=== PATIENT | female | born 1965 | race Hispanic/Latino ===

== ENCOUNTER 2024-12-13 00:31 | Emergency (ER) | payer OTHER ==
[~2024-12-13] VITALS: Ht 162.6 cm; Wt 71.2 kg
[2024-12-13] MEDS ORDERED: FAMO-136 PO (01:08)
[2024-12-13] MEDS ORDERED: PRED20TA3 PO (01:08)
[2024-12-13] MEDS ORDERED: DIPH25CA53 PO (01:08)
--- NOTE | 2024-12-13 01:08 | ERN ---
ED Note History of Present Illness Stated Complaint: C/O RASH,HIVES,ITCHING X 2 DAYS Chief Complaint: Allergic Reaction Time Seen by MD: 00:42 Dictation: 59-YEAR-OLD FEMALE PRESENTS TO ER COMPLAINTS OF AN ALLERGIC REACTION AFTER USING A DIFFERENT SOAP FOR THE 1ST TIME. HAS BEEN HAVING INTERMITTENT ITCHING FOR 2 DAYS. MILD HIVES THROUGHOUT HER BODY. DENIES SHORTNESS OF BREATH OR CHEST PAIN Allergies: Coded Allergies: No Known Allergies (Unverified Allergy, Unknown, 12/13/24) Home Meds Active Scripts Diphenhydramine HCl (Diphenhydramine HCl) 25 Mg Capsule, 25 MG PO Q6HPRN PRN for ITCHING, #10 CAP Prov:JESU MEZAARITA [facility] 12/13/24 Famotidine (Pepcid) 20 Mg Tablet, 1 TAB PO DAILY for 5 Days, #5 TAB 0 Refills Prov:JESU MEZAARITA [facility] 12/13/24 Prednisone (Prednisone) 20 Mg Tablet, 2 TAB PO DAILY for 5 Days, #10 TAB 0 Refills TAKE 1 TAB BY MOUTH THREE TIMES PER DAY X3 DAYS, THEN TAKE 1 TAB BY MOUTH TWICE A DAY X2 DAYS, THEN TAKE 1 TAB BY MOUTH ONCE A DAY X1 DAY. Prov:MARINO MEZATA [facility] 12/13/24 Past Medical History Past Medical History: Diabetes-Type II, Hypertension Surgical History: Hysterectomy Review of System Dictation CONSTITUTIONAL: NEGATIVE FOR FEVER,CHILLS, AND WEIGHT LOSS EYES: NEGATIVE FOR INJURY, PAIN,REDNESS, AND DISCHARGE ENT: NEGATIVE FOR INJURY,PAIN OR SWELLING CARDIOVASCULAR: NEGATIVE FOR CHEST PAIN, PALPITATIONS, AND EDEMA RESPIRATORY: NEGATIVE FOR SHORTNESS OF BREATH, COUGH, WHEEZING, AND PLEURITIC CHEST PAIN ABDOMEN/GI: NEGATIVE FOR ABDOMINAL PAIN, NAUSEA, VOMITING AND DIARRHEA. BACK: NEGATIVE FOR PAIN OR INJURY : NEGATIVE FOR INJURY, BLEEDING AND DISCHARGE MS/EXTREMITY: NEGATIVE FOR INJURY AND DEFORMITY SKIN: DIFFUSE RASH, WITH ITCHING NEURO: NEGATIVE FOR HEADACHE, WEAKNESS, NUMBNESS, TINGLING, AND SEIZURE PSYCH: NEGATIVE FOR SUICIDE IDEATION, HOMICIDAL IDEATION, AND HALLUCINATIONS ALLERGY/IMMUNOLOGY: NEGATIVE FOR HIVES, RASH, AND ALLERGIES ALL SYSTEMS NEGATIVE, EXCEPT NOTED ABOVE. 13 POINT REVIEW OF SYSTEMS ASSESSED AND ALL NEGATIVE EXCEPT FOR ABOVE. Initial Vital Sign VS Vital Signs Date Time Temp Pulse Resp B/P (MAP) Pulse Ox O2 Delivery O2 Flow Rate FiO2 12/13/24 00:34 97.5 83 20 140/95 98 Room Air 12/13/24 01:09 0 21 Physical Exam Dictation GENERAL: AWAKE, ALERT, NAD HEAD/FACE: NORMOCEPHALIC, ATRAUMATIC EYES: PERRL, EOMI, VISION AT BASELINE ENT: ORAL CAVITY CLEAR, TMS CLEAR, NO SIGNS OF INFECTION NECK: TRACHEA MIDLINE, SUPPLE, NO NUCHAL RIGIDITY CARDIOVASCULAR: RRR, NORMAL NO JVD RESPIRATORY: CTAB, NO RESPIRATORY DISTRESS, NO RALES OR WHEEZES ABDOMEN: SOFT, NON-TENDER, NON-DISTENDED, NORMAL BOWEL SOUNDS, NO GUARDING OR REBOUND. SKIN: WARM, DRY, NORMAL TURGOR, MILD URTICARIA RASH NOTED TO TRUNK OF BODY MS/EXTREMITY: PULSES EQUAL, NO CYANOSIS, NEUROVASCULAR INTACT, FROM NEURO: COAX4, GCS 15, STRENGTH 5/5, CN 2-12 INTACT, NORMAL CEREBELLAR EXAM, NORMAL GAIT, PSYCH: NORMAL BEHAVIOR, MOOD, AND AFFECT NORMAL ED Course ED Course Orders Procedure Category Date Status Time Famotidine 20mg Tab PHA 12/13/24 In Process (Pepcid 20mg Tab) 01:30 Current Medications Medications (Trade) Dose Ordered Sig/Lolis Route PRN Reason Start Time Stop Time Status Last Admin Dose Admin Famotidine (Pepcid 20mg Tab) 40 mg ONCE ONCE PO 12/13/24 01:30 12/13/24 01:31 Vital Signs Date Time Temp Pulse Resp B/P (MAP) Pulse Ox O2 Delivery O2 Flow Rate FiO2 12/13/24 01:09 98.4 80 16 139/60 97 Room Air* 0 21 12/13/24 00:34 97.5 83 20 140/95 98 Room Air Medical Decision Making MDM MDM: DIFFERENTIAL DIAGNOSIS: ALLERGIC REACTION, ANAPHYLAXIS, CELLULITIS, RATIONALE: TESTS CONSIDERED AND ORDERED SECONDARY TO SHARED DECISION MAKING INCLUDE: LABS, ECG AND RADIOLOGY PREVIOUS OUTSIDE RECORDS REVIEWED: OLD ER VISITS. RISK OF COMPLICATION AND/OR MORBIDITY OR MORTALITY OF PATIENT MANAGEMENT: NONE MEDICATIONS-PER MEDICATION RECONCILIATION NEED FOR HOSPITALIZATION: PATIENT DOES NOT MEET CRITERIA FOR HOSPITALIZATION. NEED FOR EMERGENCY MAJOR/MINOR SURGERY: NO THERE ARE NO SOCIAL CONCERNS WITH THIS PATIENT. PRESCRIPTION DRUG MANAGEMENT PRESCRIPTIONS WILL INCLUDE SYMPTOMATIC CARE PATIENT'S PRIOR EXTERNAL MEDICAL RECORDS FROM OTHER ER VISITS WERE REVIEWED BY ME INDICATED. PRIOR TESTING AND RESULTS FROM PREVIOUS VISITS WERE REVIEWED. PRIOR TESTS WERE TAKEN INTO ACCOUNT WITH MEDICAL DECISION MAKING AND RESOURCE UTILIZATION, INDEPENDENT HISTORIAN/HISTORIANS WERE USED TO OBTAIN COMPLETE MEDICAL HISTORY. I INDEPENDENTLY INTERPRETED THE TEST THAT WERE PERFORMED, RESULTS WERE REVIEWED BY ME AND CONSIDERED FINDINGS ON RADIOLOGY IF ORDERED. PATIENT STATES SHE HAD BEEN USING BENADRYL AT HOME AND IT HAS HELPED BUT RASH CONTINUES TO RETURNED. PATIENT ADVISED TO TAKE 3-5 DAYS OF ALLERGY REACTION MEDICATION TO GET RID OF THIS ALLERGIC REACTION PATIENT WILL TAKE BENADRYL WHEN SHE ARRIVES SHE IS DRIVING. DX & DISP Disposition: Discharge Departure Impression: Primary Impression: Allergic reaction Additional Impression: Urticaria Condition: Stable Scripts Diphenhydramine HCl (Diphenhydramine HCl) 25 Mg Capsule 25 MG PO Q6HPRN PRN for ITCHING, #10 CAP Prov: AFSHAN MEZAP 12/13/24 Famotidine (Pepcid) 20 Mg Tablet 1 TAB PO DAILY for 5 Days, #5 TAB 0 Refills Prov: AFSHAN MEZAP 12/13/24 Prednisone (Prednisone) 20 Mg Tablet 2 TAB PO DAILY for 5 Days, #10 TAB 0 Refills TAKE 1 TAB BY MOUTH THREE TIMES PER DAY X3 DAYS, THEN TAKE 1 TAB BY MOUTH TWICE A DAY X2 DAYS, THEN TAKE 1 TAB BY MOUTH ONCE A DAY X1 DAY. Prov: AFSHAN MEZA 12/13/24 Additional Instructions: Stop using the soap. Take medications as prescribed. FOLLOW-UP WITH YOUR PCP IN 24-72 HOURS AND IN THE EVENT IF SYMPTOMS WORSEN OR AN EMERGENCY OVERNIGHT REPORT TO THE ED IMMEDIATELY Referrals: NONE (PCP) AFSHAN MEZA Dec 13, 2024 01:08
[2024-12-13] MEDS: FAMOTIDINE 20MG TAB PO ONE (01:32)
[2024-12-13 01:48] VITALS: BP 120/64; PULSE 74; RESP 16; TEMP 98.4; O2SAT 97
== END 2024-12-13 01:59 | disposition home or self-care (01) ==
LOC: EDH 00:31
DX: L50.0 Allergic urticaria (principal); E11.9 Type 2 diabetes mellitus without complications; I10 Essential (primary) hypertension; Z90.710 Acquired absence of both cervix and uterus; Z79.52 Long term (current) use of systemic steroids; Z79.899 Other long term (current) drug therapy
CPT/HCPCS: 99283